=== PATIENT | female | born 1990 | race Caucasian/White ===

== ENCOUNTER 2018-02-22 11:48 | Emergency (ER) | payer SELFPAY ==
[2018-02-22] MEDS ORDERED: CEREBYX INJ IVP ONE (11:58)
[2018-02-22 11:59] VITALS: BP 118/65; BMI 21.4
--- NOTE | 2018-02-22 11:59 | DR.SEIZA ---
HPI - Time Seen Time seen: 11:55 - HPI Comment HPI Comment: EMS ARRIVE TO A PTIENT WITH SOB. SHE WAS SEIZING IN HER FED EX TRUCK WHEN THEY ARRIVE. 3 MORE SIEZURE NOTED. 5MG IV VALIUM GIVEN. ONE YEAR AGO , HAD SEIZURE. WAS NOT PLACE ON MED. CT DONE THEN THAT WAS NORMAL. NO FURHER WORK UP WAS DONE. DENIES FEVER. HAVE HEADACHE AHD NAUSEA. - Complaints Chief Complaint Doctors Comments: REPEATED SEIZURE, HERE VIA EMS. 5MG IV VALIUM. - Reviewed Nurses Notes Reviewed: Yes - Source History Provided: Patient, Family Member - Mode of Arrival Mode of Arrival: Stretcher - Duration Since Onset: Intermittent Duration: Hours - Quality Quality: Tonic-clonic - Location Location: Generalized - Context Prior to Seizure:: Lethargic During Seizure: LOC Immediately After Seizure: Confusion, Headache History of:: None Medication Compliance: No - Associated Signs and Symptoms Associated Signs and Symptoms:: Headache ROS - Review of Systems Constitutional: Weakness, Fatigue. negative: Chills, Fever Eyes: Blurred Vision. negative: Eye Pain, Discharge ENTM: No Symptoms Reported. negative: Ear Pain, Nose Discharge, Nose Congestion , Throat Pain Respiratoy: No Symptoms Reported. negative: Productive Cough, Non-Productive Cough, Short of Breath, Wheezing Cardiovascular: No Symptoms Reported. negative: Cyanosis Gastrointestinal/Abdominal: No Symptoms Reported, Nausea. negative: Abdominal Pain Genitourinary: negative: Dysuria, Frequency, Hematuria Neurological: Headache, Seizure (REPEATED) Musculoskeletal: No Symptoms Reported Integumentary: No Symptoms Reported Hematologic/Lymphatic: No Symptoms Reported Endocrine: No Symptoms Reported All Other Systems: Reviewed and Negative PE - Vital Signs Vitals: Temperature 98.2 F Pulse Rate 69 Respiratory Rate 20 Blood Pressure 118/65 O2 Sat by Pulse Oximetry 100 - General Limitations: No Limitations General Appearance: Alert - Head Head Exam: Normal Inspection - Eyes Eye exam: Normal Appearance Eyelids: Normal Inspection: Bilateral Pupils: Regular, Round: Bilateral, Reactive: Bilateral - ENT ENT Exam: Normal Exam Mouth Exam: Normal Inspection - Neck Neck Exam: Trachea Midline - Chest Chest Inspection: Symmetric Chest Wall Rise - Respiratory Respiratory Exam: Normal Lung Sounds Bilat Respiratory Exam: Bilateral Clear to Auscultation - Cardiovascular Cardiovascular Exam: Regular Rate, Normal Rhythm, Normal Heart Sounds - Abdominal Exam Abdominal Exam: Normal Bowel Sounds, Soft. negative: Tenderness - Extremities Extremities Exam: Normal Inspection - Back Back Exam: Normal Inspection - Neurologic Neurological Exam: Other (DROUSY, CONFUSE) Cranial Nerve Exam: Gag reflex (XI): Normal Motor Strength - LUE: 5/5 Motor Strength - RUE: 5/5 Motor Strength - LLE: 5/5 Motor Strength - RLE: 5/5 Upper Motor Neuron Exam: Babinski Sign: Normal - Psychiatric Psychiatric Exam: Other (DROUSY.) - Skin Skin Exam: Normal Color MDM - Additional Information Obtained Additional Information Obtained From: Family - Differential Diagnosis Seizure due to:: CVA/TIA, Hypoclacemia, Hypoglycemia, Hyponatremia, Hypoxemia, Idiopathic, Mass lesion Course - Treatment Treatment: SEE ORDERS. VALIUM 5MG IV AFTER 5MG IV BY EMS IN ED. ATIVAN 2 MG IV AFTER 3 REPEATED SEIZURE IN ED. CEREBYX IGM IVPB IN ED. PATIENT SLEEPY. NO SEIZURE OBSERVE CURRENTLY AT 14:00 PM. - Consultation Consultation Comments: PATIENT ACEPTED BY [facility]. - Education/Counseling Education/Counseling: Patient, Family, Education Educated On: Treatment, Diagnosis ROR - Labs Reviewed Laboratory Results Reviewed?: Yes Result Diagrams: 02/22/18 12:53 02/22/18 12:53 Laboratory: WBC 10.0 X10^3/uL (3.6-10.0) 02/22/18 12:53 RBC 4.86 X10^6/uL (3.5-5.4) 02/22/18 12:53 Hgb 12.9 g/dL (12.0-16.0) 02/22/18 12:53 Hct 38.0 % (36.0-47.0) 02/22/18 12:53 MCV 78.2 fL (80.0-100.0) L 02/22/18 12:53 MCH 26.6 pg (27.0-34.0) L 02/22/18 12:53 MCHC 34.0 g/dL (33.0-35.0) 02/22/18 12:53 RDW 14.7 % (11.6-16.5) 02/22/18 12:53 Plt Count 235 X10^3/uL (150.0-450.0) 02/22/18 12:53 MPV 7.4 fL (7.4-11.0) 02/22/18 12:53 Neut % (Auto) 66.9 % (42.0-75.0) 02/22/18 12:53 Lymph % (Auto) 25.1 % (21.0-51.0) 02/22/18 12:53 [place] % (Auto) 4.2 % (0.0-13.0) 02/22/18 12:53 Eos % (Auto) 3.4 % (0.9-2.9) H 02/22/18 12:53 Baso % (Auto) 0.4 % (0.2-1.0) 02/22/18 12:53 Neut # (Auto) 6.7 x10^3/uL (2.2-4.8) H 02/22/18 12:53 Lymph # (Auto) 2.5 X10^3/uL (1.3-2.9) 02/22/18 12:53 [place] # (Auto) 0.4 x10^3/uL (0.3-0.8) 02/22/18 12:53 Eos # (Auto) 0.3 x10^3/uL (0.0-0.2) H 02/22/18 12:53 Baso # (Auto) 0.0 X10^3/uL (0.0-0.1) 02/22/18 12:53 Absolute Nucleated RBC 0.0 /100WBC 02/22/18 12:53 Sodium 139 mmol/L (136-145) 02/22/18 12:53 Corrected Sodium TNP 02/22/18 12:53 Potassium 3.8 mmol/L (3.5-5.1) 02/22/18 12:53 Chloride 105 mmol/L (98-107) 02/22/18 12:53 Carbon Dioxide 22.2 mmol/L (21-32) 02/22/18 12:53 BUN 12 mg/dL (7-18) 02/22/18 12:53 Creatinine 0.87 mg/dL (0.55-1.02) 02/22/18 12:53 Est GFR (MDRD) Af Amer > 60 (>60) 02/22/18 12:53 Est GFR (MDRD) Non-Af > 60 (>60) 02/22/18 12:53 Glucose 104 mg/dL (65-99) H 02/22/18 12:53 Calcium 8.1 mg/dL (8.5-10.1) L 02/22/18 12:53 Corrected Calcium TNP 02/22/18 12:53 Total Bilirubin 0.30 mg/dL (0.2-1.0) 02/22/18 12:53 AST 14 Units/L (15-37) L 02/22/18 12:53 ALT 21 Units/L (12-78) 02/22/18 12:53 Alkaline Phosphatase 54 Units/L (46-116) 02/22/18 12:53 Total Protein 7.1 g/dL (6.4-8.2) 02/22/18 12:53 Albumin 3.6 g/dL (3.4-5.0) 02/22/18 12:53 Globulin 3.5 g/dL (2.5-4.5) 02/22/18 12:53 Albumin/Globulin Ratio 1.0 Ratio (1.1-2.1) L 02/22/18 12:53 Specimen Type Catherized urine 02/22/18 14:11 Urine Color Pale yellow (YELLOW) 02/22/18 14:11 Urine Appearance Clear (CLEAR) 02/22/18 14:11 Urine pH 6.0 (5.0 - 8.0) 02/22/18 14:11 Ur Specific [place] 1.015 (1.000-1.030) 02/22/18 14:11 Urine Protein Negative (NEGATIVE) 02/22/18 14:11 Urine Glucose (UA) Negative (NEGATIVE) 02/22/18 14:11 Urine Ketones Negative (NEGATIVE) 02/22/18 14:11 Urine Occult Blood Negative (NEGATIVE) 02/22/18 14:11 Urine Nitrite Negative (NEGATIVE) 02/22/18 14:11 Urine Bilirubin Negative (NEGATIVE) 02/22/18 14:11 Urine Urobilinogen Normal (NORMAL) 02/22/18 14:11 Ur Leukocyte Esterase Negative (NEGATIVE) 02/22/18 14:11 Urine Opiates Screen Negative (NEG=<300) 02/22/18 14:11 Urine Methadone Screen Negative (NEG=<300) 02/22/18 14:11 Ur Barbiturates Screen Negative (NEG=<200) 02/22/18 14:11 Ur Phencyclidine Scrn Negative (NEG=<25) 02/22/18 14:11 Ur Amphetamines Screen Negative (NEG=<1000) 02/22/18 14:11 U Benzodiazepines Scrn Positive (NEG=<200) A 02/22/18 14:11 Urine Cocaine Screen Negative (NEG=<300) 02/22/18 14:11 U Marijuana (THC) Screen Positive (NEG=<50) A 02/22/18 14:11 - XRAY XRAY Interpreted by: Radiologist XRAY Findings: REPORT DISCUSS WITH FAMILY. - EKG Rhythm: NSR (EKG NOTED.) - Diagnosis Discharge Problem: Seizure Headache Qualifiers: Headache type: unspecified Headache chronicity pattern: acute headache Intractability: intractable Qualified Code(s): R51 - Headache - Discharge Plan Disposition: 02 XFER [facility] Condition: Stable - Follow ups/Referrals Follow ups/Referrals: СВЕТЛАНА RICKS [Primary Care Provider] - 3 days - Instructions
[2018-02-22] MEDS ORDERED: NS 100 ML IV 100 ML IV ONE (12:02)
[2018-02-22] MEDS ORDERED: CEREBYX INJ ONE (12:03)
[2018-02-22] MEDS ORDERED: ATIVAN INJ 2 MG VIAL ONE ×2 (12:37→15:18)
[2018-02-22] MEDS ORDERED: ATIVAN INJ 2 MG VIAL IVP ONE ×2 (12:45→15:20)
--- NOTE | 2018-02-22 13:04 | CT ---
History: Seizure Study: CT head without contrast. Sagittal and coronal reformations were provided. Comparison: None Findings: The ventricles and sulci are normal in size and configuration. There is no intracranial hem orrhage or mass or edema or subdural collection of fluid. The calvarium is intact. There is mild muco myrna thickening in the anterior ethmoid air cells. There is artifact from a right sided earing . Impression: No evidence for acute intracranial disease Reported By:
[2018-02-22 13:14] LABS: BASOPHILS % (AUTO) 0.4 % (0.2-1.0); EOSINOPHILS # (AUTO) 0.3 x10^3/uL (0.0-0.2); EOSINOPHILS % (AUTO) 3.4 % (0.9-2.9); HEMOGLOBIN 12.9 g/dL (12.0-16.0); LYMPHOCYTES # (AUTO) 2.5 X10^3/uL (1.3-2.9); LYMPHOCYTES % (AUTO) 25.1 % (21.0-51.0); MEAN CORPUSCULAR HEMOGLOBIN 26.6 pg (27.0-34.0); MEAN CORPUSCULAR VOLUME 78.2 fL (80.0-100.0); MEAN PLATELET VOLUME 7.4 fL (7.4-11.0); MONOCYTES # (AUTO) 0.4 x10^3/uL (0.3-0.8); MONOCYTES % (AUTO) 4.2 % (0.0-13.0); NEUTROPHILS # (AUTO) 6.7 x10^3/uL (2.2-4.8); NEUTROPHILS % (AUTO) 66.9 % (42.0-75.0); PLATELET COUNT 235 X10^3/uL (150.0-450.0); RED BLOOD COUNT 4.86 X10^6/uL (3.5-5.4); RED CELL DISTRIBUTION WIDTH 14.7 % (11.6-16.5)
[2018-02-22 13:25] LABS: ALANINE AMINOTRANSFERASE 21 Units/L (12-78); ALBUMIN 3.6 g/dL (3.4-5.0); ALKALINE PHOSPHATASE 54 Units/L (46-116); ASPARTATE AMINO TRANSFERASE 14 Units/L (15-37); BLOOD UREA NITROGEN 12 mg/dL (7-18); CALCIUM 8.1 mg/dL (8.5-10.1); CARBON DIOXIDE 22.2 mmol/L (21-32); CHLORIDE 105 mmol/L (98-107); CREATININE 0.87 mg/dL (0.55-1.02); SODIUM 139 mmol/L (136-145); TOTAL PROTEIN 7.1 g/dL (6.4-8.2); eGFR BLACK RACES > 60 (>60); eGFR NON BLACK RACES > 60 (>60)
[2018-02-22 14:20] LABS: BILIRUBIN,URINE NEGATIVE (NEGATIVE); BLOOD/HEMOGLOBIN,URINE NEGATIVE (NEGATIVE); GLUCOSE, URINE NEGATIVE (NEGATIVE); KETONES,URINE NEGATIVE (NEGATIVE); LEUKOCYTE ESTERASE ,URINE NEGATIVE (NEGATIVE); NITRITES,URINE NEGATIVE (NEGATIVE); PROTEIN,URINE NEGATIVE (NEGATIVE); UROBILINOGEN,URINE NORMAL (NORMAL)
[2018-02-22 14:21] LABS: APPEARANCE,URINE CLEAR (CLEAR); COLOR,URINE PALE YELLOW (YELLOW)
[2018-02-22] MEDS ORDERED: NS 1000 ML 1,000 ML ONE (15:24)
== END 2018-02-22 15:37 | disposition short-term general hospital (02) ==
LOC: ER 12:08
DX: R56.9 Unspecified convulsions (principal); R73.9 Hyperglycemia, unspecified
CPT/HCPCS: 36415; 51702; 70450; 80053; 80307; 81003; 85025; 93005; 93010; 96365; 96367; 96374; 96375; 99284; 99285; A4222; S0078; G0434; J2060